=== PATIENT | female | born 1990 | race Caucasian/White ===

== ENCOUNTER 2016-09-02 14:23 | Inpatient (IN) | payer BC, OTHER ==
[~2016-09-02] VITALS: Ht 152.4 cm; Wt 47.6 kg
[~2016-09-02 14:23] MED LIST: CLON0.1T14 PO; DICY20TA28 PO; Gabapentin PO; HYDR-3895 PO; Ibuprofen PO; METH-33 PO; NORG1TAB11 PO; TRAZ-144 PO
[2016-09-03 12:22] LABS: *URINE HCG, QUAL NEGATIVE (NEGATIVE)
[2016-09-03] MEDS ORDERED: LORAZEPAM 1 MG TABLET PO PRN ×2 (12:30)
[2016-09-03] MEDS ORDERED: BUPRENORPHINE HCL 2 MG TAB.SUBL SL PRN (12:30)
[2016-09-03] MEDS ORDERED: diphenhydrAMINE 50 MG CAPSULE PO PRN (12:30)
[2016-09-03] MEDS ORDERED: LORAZEPAM 2 MG/1 ML VIAL IM PRN (12:30)
[2016-09-03] MEDS ORDERED: LOPERAMIDE HCL 2 MG CAPSULE PO PRN ×2 (12:30)
[2016-09-03] MEDS ORDERED: ACETAMINOPHEN 325 MG TABLET PO PRN (12:30)
[2016-09-03] MEDS ORDERED: IBUPROFEN 400 MG TABLET PO PRN (12:30)
[2016-09-03] MEDS ORDERED: MAGNESIUM HYDROXIDE 30 ML LIQUID UDC PO PRN (12:30)
[2016-09-03] MEDS ORDERED: MIRALAX 17 GM POWD.PACK PO PRN (12:30)
[2016-09-03] MEDS ORDERED: METHOCARBAMOL 750 MG TABLET PO PRN (12:30)
[2016-09-03] MEDS ORDERED: ONDANSETRON ODT 4 MG TAB.RAPDIS SL PRN (12:30)
[2016-09-03] MEDS ORDERED: MAG HYDROX/AL HYDROX/SIMETH 30 ML LIQUID UDC PO PRN (12:30)
[2016-09-03 12:34] LABS: *AMPHETAMINE, URINE NEGATIVE (NEGATIVE); *BARBITURATE, URINE NEGATIVE (NEGATIVE); *CANNABINOID, URINE NEGATIVE (NEGATIVE); *COCCAINE, URINE NEGATIVE (NEGATIVE); *OPIATE, URINE POSITIVE (NEGATIVE); *PHENCYCLIDINE SCREEN,URINE NEGATIVE (NEGATIVE)
[2016-09-03 12:49] VITALS: BP 129/79
--- NOTE | 2016-09-03 13:42 | NUR ---
ADMISSION Admitted a 26 year old female, arrived on unit at 1150 presenting in stable condition. Patients body assessment completed, noted with intact skin no bruising, discolorations or breakdown noted. Body search completed by female JUNIOR UNDERWRITER, no contraband found. Patient oriented to unit and to room, educated regarding call light use. Patients vital signs: bp: 129/79 hr: 83 r: 16 o2 sat: 97% room air. Patient is 5 feet tall and weighs 105lbs. Patient reports no drug or food allergies. Patient reports she relapsed 2 weeks ago. reports usin. heroin 1 gram smoked daily for 2 weeks, per patient she has been using heroin since the age of 18, report last used this morning 1 gram at approximately 0600. 2. Klonopin 2 mg Po at bedtime for 2 weeks, per patient she has been using Klonopin since the age of 21, reports last used 09/02/2016 at 2300. Patient brought home medication ( control) medication was reconciled. patient reports past medical history of anxiety and depression. Patient denies any history of seizures. Refused FLU/PNA vaccine risk vs benefits explained with good verbal understanding. Patient reports family substance use history of sister using heroin, but has been sober for 7 months now. Reports [facility] of: [facility]august [facility], [facility] in [place] for 11 days in 2016, [facility] for 5 days at the age of 21 and [facility] for 5 days at the age of 20. Patient presenting with no s/sx of withdrawal. Patient was seen by Dr. Rosenbaum with new admitting orders. Patient calm and cooperative. alert and oriented x4, pupils are equal and reactive to light, 3mm. Patients abdomen is soft and non distended, bowel sounds heard in all quadrants, patients respirations are even and unlabored, lungs clear upon auscultation. psychiatrist notified of new admission. safety measures in place. call light with in reach, will continue to monitor closely.
[2016-09-03 15:13] LABS: ETHANOL < 3 MG/DL (0-0)
[2016-09-03 15:19] LABS: ALANINE AMINOTRANSFERASE 32 U/L (14-59); ALKALINE PHOSPHATASE 57 U/L (50-136); BILIRUBIN,TOTAL 0.4 mg/dL (0.2-1.0); CALCIUM 9.2 mg/dL (8.5-10.1); CARBON DIOXIDE 28 mmol/L (21-32); CHLORIDE 105 mmol/L (98-107); CREATININE 0.7 mg/dL (0.6-1.3); GFR 102 mL/min (>60); GLUCOSE 100 mg/dL (74-106); MAGNESIUM 1.7 mg/dL (1.8-2.4); POTASSIUM 3.9 mmol/L (3.5-5.1); SODIUM SERUM 141 mmol/L (136-145); TOTAL PROTEIN, SERUM 7.9 g/dL (6.4-8.2); UREA NITROGEN, BLOOD 9 mg/dL (7-18)
[2016-09-03 15:30] LABS: HIV-1 p24 ANTIGEN NON REACTIVE (NONREACTIVE); HIV-1/2 ANTIBODY NON REACTIVE (NONREACTIVE)
[2016-09-03 15:53] LABS: ASPARTATE AMINOTRANSFERASE 25 U/L (15-37)
[2016-09-03] MEDS: GABAPENTIN 300 MG CAPSULE PO SCH (16:23)
[2016-09-03 16:58] LABS: EOSINOPHILS # (AUTO) 0.1 K/uL (0.0-0.7); LYMPHOCYTES # (AUTO) 1.8 K/uL (0.8-4.8); MONOCYTES # (AUTO) 0.5 K/uL (0.1-1.30); NEUTROPHILS # (AUTO) 5.7 K/uL (1.8-8.9)
[2016-09-03 16:59] LABS: HEMATOCRIT 41.4 % (33-45); MEAN CORPUSCULAR HEMOGLOBIN 31.7 UUG (26.0-33.0); MEAN CORPUSCULAR HGB CONC 34 g/dL (31.0-36.0); MEAN CORPUSCULAR VOLUME 93.7 FL (82-100); PLATELET COUNT (AUTO) 295 K/UL (150-450); RED BLOOD CELL COUNT(AUTO) 4.41 MIL/UL (4.0-5.2); RED CELL DISTRIBUTION WIDTH 12.6 % (11.5-15.0); WHITE BLOOD COUNT (AUTO) 8.2 K/UL (4.3-11.0)
[2016-09-03 17:00] VITALS: BP 96/63
[2016-09-03 17:00] LABS: BASOPHILS % (AUTO) 0.3 % (0.0-2.0); EOSINOPHILS % (AUTO) 1.8 % (0.0-7.0); LYMPHOCYTES % (AUTO) 22.4 % (20.5-51.5); MONOCYTES % (AUTO) 5.6 % (0.0-11.0); NEUTROPHILS % (AUTO) 69.9 % (43.0-81.0)
--- NOTE | 2016-09-03 18:59 | NUR ---
END OF SHIFT Patient alert and oriented x4, compliant with therapeutic plan of care, vital signs with in normal limits during shift. Patient admitted today, with admitting Dx: opiate dependence. Patient currently with no ongoing taper, but has PRN medications for s/sx of withdrawal as needed, continues under close observation of vital signs and cow scores. 1700 assessment patient presented with: heart rate of 86 with cow score eof: 1. Patient encouraged to attend group therapies/sessions to learn new coping skills to prevent relapse, denies any SI/HI. Patient encouraged increase in PO fluid intake as tolerated. Patients abdomen is soft and non distended, bowel sounds heard in all quadrats. no episodes of N/V/D noted. Safety measures in place. call light with in reach, patient endorsed to warehouse shift supervisor nurse, all pertinent information discussed.
[2016-09-03 20:00] VITALS: BP 109/69
--- NOTE | 2016-09-03 20:00 | NUR ---
START OF SHIFT NOTE PATIENT IS A 26 YEAR OLD FEMALE, ADMITTED ON 09/03/16 FOR OPIATE DEPENDENCE. PATIENT IS FULL CODE, REGULAR DIET AND NO KNOWN ALLERGY. PATIENT REPORTS PMH OF ANXIETY AND DEPRESSION. PATIENT IS ON HEROIN (SMOKED) 1 GRAM X 2 WEEKS AND KLONOPIN 2 MG X 2 WEEKS . PATIENT RELAPSED 2 WEEKS AGO. PATIENT WAS PLACED ON 4 DAY SUBUTEX TAPER TO START TOMORROW. SKIN INTACT. PATIENT DID NOT REQUIRE PRN MEDICATION DURING THE DAY. LAST COWS 1. PATIENT ALERT AND ORIENTED X 4. RESPIRATION EVEN AND UNLABORED. PATIENT C/O ANXIETY, DENIES ANY PAIN. NO N/V. PATIENT STATES SHE STARTING TO SWEAT. REQUESTED A SLEEP AID , PER PATIENT SHE WILL SLEEP IT IN AND WILL ASK IF NEEDED. SAFETY MEASURES IN PLACE. CALL LIGHT IN REACH. WILL CONTINUE TO MONITOR.
[2016-09-03] MEDS ORDERED: MAGNESIUM OXIDE 400 MG TABLET PO ONE (21:00)
[2016-09-03] MEDS: AMITRIPTYLINE HCL 50 MG TABLET PO PRN (21:29)
--- NOTE | 2016-09-03 21:29 | NUR ---
PRN ELAVIL ADMINISTRATION PATIENT REQUESTS FOR SLEEP AID. PRN ELAVIL GIVEN. WILL MONITOR FOR EFFECTIVENESS.
[2016-09-03] MEDS: CLONIDINE HCL 0.1 MG TABLET PO PRN (22:17)
[2016-09-03] MEDS: DICYCLOMINE HCL 20 MG TABLET PO PRN (22:17)
--- NOTE | 2016-09-03 22:17 | NUR ---
PRN BENTYL. CATAPRES AND VISTARIL ADMINISTRATION PATIENT C/O ABDOMINAL CRAMPING, HOT AND COLD SWEATS AND ANXIETY. PRN BENTYL/CATAPRES AND VISTARIL GIVEN. WILL MONITOR FOR EFFECTIVENESS.
[2016-09-03] MEDS: HYDROXYZINE PAMOATE 25 MG CAPSULE PO PRN (22:18)
--- NOTE | 2016-09-03 23:30 | NUR ---
PRN MEDICATIONS RE-ASSESSMENT PATIENT IN BED WITH EYES CLOSED. NO S/S OF DISTRESS. RESPIRATION EVEN AND UNLABORED. SAFETY MEASURES IN PLACE. CALL LIGHT IN REACH. WILL CONTINUE TO MONITOR.
[2016-09-04] VITALS: BP 96/59
[2016-09-04 04:00] VITALS: BP 101/65
--- NOTE | 2016-09-04 06:39 | NUR ---
PRN ZOFRAN /SUBUTEX GIVEN PATIENT NOTED VOMITING C/O NAUSEA. PATIENT TREMULOUS, FLUSHED FACE, RUNNY NOSE, SWEATING AND RESTLESS, COWS 13. VS BP-105/69 P-72 . PRN ZOFRAN/SUBUTEX GIVEN. WILL MONITOR FOR EFFECTIVENESS.
--- NOTE | 2016-09-04 07:09 | NUR ---
PRN SUBUTEX RE-ASSESSMENT PATIENT IN BED,PATIENT STATES SHE'S DOING BETTER NOW, NAUSEA AND EMESIS CEASED. COWS 5 AT THIS TIME. PATIENT LESS ANXIOUS. PATIENT STATE PRN SUBUTEX HELPFUL. WILL CONTINUE TO MONITOR.
--- NOTE | 2016-09-04 07:12 | NUR ---
END OF SHIFT NOTE PATIENT IS A 26 YEAR OLD FEMALE, ADMITTED ON 09/03/16 FOR OPIATE DEPENDENCE. PATIENT IS FULL CODE, REGULAR DIET AND NO KNOWN ALLERGY. PATIENT REPORTS PMH OF ANXIETY AND DEPRESSION. PATIENT IS ON HEROIN (SMOKED) 1 GRAM X 2 WEEKS AND KLONOPIN 2 MG X 2 WEEKS . PATIENT RELAPSED 2 WEEKS AGO. PATIENT WAS PLACED ON 4 DAY SUBUTEX TAPER TO START TOMORROW. PATIENT IS ON 4 DAY SUBUTEX TAPER. SKIN INTACT. PATIENT ALERT AND ORIENTED X 4. RESPIRATION EVEN AND UNLABORED. PATIENT C/O ANXIETY, DENIES ANY PAIN. PATIENT STATES SHE'S STARTING TO SWEAT. REQUESTED A SLEEP AID , PER PATIENT SHE WILL SLEEP AND WILL ASK IF NEEDED. PATIENT WAS GIVEN PRN ELAVIL FOR SLEEP. LATER AT NIGHT, PATIENT C/O ANXIETY, HOT AND COLD SWEATS AND STOMACH CRAMPING. PRN BENTYL , CLONIDINE AND VISTARIL GIVEN, EFFECTIVE. MAGNESIUM LEVEL 1.7-REPLACED WITH MAG OX . PATIENT AT 0630 WAS NAUSEATED, VOMITING, TREMULOUS, RESTLESS , SWEATING , COWS 13. PRN SUBUTEX GIVEN. ENDORSED TO DAY SHIFT NURSE TO FOLLOW UP. PATIENT IN BED , RESTING. SAFETY MEASURES IN PLACE. CALL LIGHT IN REACH. WILL CONTINUE TO MONITOR. SLEPT 6 HOURS. FLUID INTAKE 500 ML. VOIDED X 0 . NO BM. LAST COWS 5..
--- NOTE | 2016-09-04 07:25 | NUR ---
PRN ZOFRAN RE-ASSESSMENT PATIENT REPORTS NAUSEA/ EMESIS CEASED. ZOFRAN HELPFUL AND EFFECTIVE. WILL CONTINUE TO MONITOR
--- NOTE | 2016-09-04 07:28 | NUR ---
Start of shift Patient is a 26 year old female, admitted on 09/03/16 for opiate dependence. Patient is full code, regular diet and no known allergy. Patient reports PMH of anxiety and depression. Patient relapsed 2 weeks ago. Patient is placed on a 4 day Subutex currently on day 1 of her taper. Patient was given PRN Elavil, Bentyl , Clonidine and Vistaril medication effective per overnight houseperson nurse. Pt was given one time order of Mag Ox d/t having low magnesium levels of 1.7 Pt also received a PRN Subutex for COWS score of 13. Pts last COWS was a 5 taken at 0400. Pt slept a total of 6 hours last night. Patient in bed , resting. Safety measures in place. Call light in reach. Will continue to monitor.
[2016-09-04 08:00] VITALS: BP 104/65
[2016-09-04] MEDS ORDERED: TUBERCULIN,PURIF.PROT.DERIV. 5 TU/0.1 ML TEST ID ONE (09:00)
[2016-09-04] MEDS ORDERED: 4 DAY TAPER BUPRENORPHINE -SERENITY PROTOCOL SL PRN (09:00)
[2016-09-04] MEDS: MULTIVITAMINS,THERAPEUTIC TABLET PO SCH (09:25)
[2016-09-04] MEDS: GABAPENTIN 300 MG CAPSULE PO SCH ×3 (09:25→21:29)
[2016-09-04] MEDS: DOCUSATE SODIUM 250 MG CAPSULE PO SCH (09:26)
[2016-09-04] MEDS: BUPRENORPHINE HCL 2 MG TAB.SUBL SL SCH ×3 (09:26→21:30)
[2016-09-04] MEDS: TRI-SPRINTEC PO SCH (09:27)
[2016-09-04] MEDS: CLONIDINE HCL 0.1 MG TABLET PO PRN (09:45)
[2016-09-04] MEDS: DICYCLOMINE HCL 20 MG TABLET PO PRN (09:45)
[2016-09-04] MEDS: HYDROXYZINE PAMOATE 25 MG CAPSULE PO PRN (09:45)
--- NOTE | 2016-09-04 09:45 | NUR ---
PRN MEDICATION Pt c/o Anxiety presented with sweats fatigue and restlessness pt also complained of generalized pain rating it 5/10 and stomach cramps, requested something for relief, non-pharmacological techniques interventions provided x3 and were not effective. PRN clonidine 0.1mg Vistaril 50mg, Bentyl 20mg and Robaxin 750mg administered PO, educated pt about s/e of medication and when to contact nurse. all needs met, all safety measures in place, will continue to monitor.
--- NOTE | 2016-09-04 10:46 | NUR ---
PRN REASSESSMENT Medications effective pt reported a decrease in pain to 3/10, pt stated she felt less anxious and no longer had abdominal cramps, all needs met, all safety measures in place will continue to monitor.
[2016-09-04] MEDS ORDERED: KETOROLAC TROMETHAMINE 30 MG INJ IM PRN (11:15)
[2016-09-04 12:00] VITALS: BP 128/75
[2016-09-04] MEDS ORDERED: BUPRENORPHINE HCL 2 MG TAB.SUBL SL ONE (12:30)
[2016-09-04 13:25] LABS: HCV AB 0.1 s/co ratio (0.0-0.9); HEPATITIS B CORE AB, IgM Negative (Negative); HEPATITIS B SURFACE AG Negative (Negative)
[2016-09-04] MEDS: BACLOFEN 20 MG TABLET PO SCH ×2 (15:24→21:30)
[2016-09-04 16:00] VITALS: BP 141/76
--- NOTE | 2016-09-04 19:23 | NUR ---
End of shift Patient is a 26 year old female, admitted on 09/03/16 for opiate dependence. Patient is full code, regular diet and no known allergy. Patient reports PMH of anxiety and depression. Patient relapsed 2 weeks ago. Patient is placed on a 4 day Subutex currently on day 1 of her taper. Patient was given PRN Bentyl , Clonidine robaxin and Vistaril medication effective. Pt was given one time order of Subutex per MD order . Pts last COWS was a 7 taken at 1600. Pt did not participate in any groups or activities during the day. Pt stated that the medications are working well at controlling the withdrawal symptoms, evidenced by low assessment scores during the day ranging from 9-7. Pt ate all of her meals. Pt remains compliant with the treatment plan. Pts vital signs within normal limits, A/Ox4, denies chest pain. Respirations even unlabored, lungs clear upon auscultation abdomen soft and non- distended. Pt denies nausea, vomiting and diarrhea. Pt total fluid intake was 855ml with 3 voids and 1 stool. Safety measures in place, call light within reach. All pertinent information discussed with fast food shift supervisor, endorsement given to fast food shift supervisor nurse.
[2016-09-04 20:00] VITALS: BP 104/60
--- NOTE | 2016-09-04 20:00 | NUR ---
START OF SHIFT NOTE PATIENT IS A 26 YEAR OLD FEMALE, ADMITTED ON 09/03/16 FOR OPIATE/BENZO DEPENDENCE. PATIENT IS FULL CODE, REGULAR DIET AND NO KNOWN ALLERGY . PATIENT REPORTS PMH OF ANXIETY AND DEPRESSION . PATIENT IS ON HEROIN (SMOKED ) 1 GRAM X 2 WEEKS AND KLONOPIN 2 MG X 2 WEEKS .PATIENT IS ON FIRST DAY OF HER 4 DAY SUBUTEX TAPER. PATENT IN ON FALL PRECAUTION. SKIN INTACT. PATIENT WAS GIVEN VISTARIL, ROBAXIN, BENTYL AND EXTRA SUBUTEX DURING THE DAY. LAST COWS 7. CHEST X-RAY WAS DONE DUE TO TB TEST REFUSAL. PATIENT ALERT AND ORIENTED. PATIENT STATES SHE'S NOT FEELING GOOD. PATIENT C/O ANXIETY, HOT AND COLD SWEATS, NOTED FLUSHED, ABDOMINAL CRAMP, NO N/V, STUFFY NOSE. SAFETY MEASURES IN PLACE. CALL LIGHT IN REACH. WILL CONTINUE TO MONITOR.
[2016-09-04] MEDS ORDERED: LORAZEPAM 1 MG TABLET PO SCH (21:00)
[2016-09-04] MEDS: AMITRIPTYLINE HCL 50 MG TABLET PO PRN (22:22)
--- NOTE | 2016-09-04 22:22 | NUR ---
PRN ELAVIL ADMINISTRATION PATIENT REQUESTS FOR SLEEP AID. PRN ELAVIL GIVEN. WILL MONITOR FOR EFFECTIVENESS.
[2016-09-04] MEDS ORDERED: AMITRIPTYLINE HCL 50 MG TABLET ONE (22:27)
--- NOTE | 2016-09-04 23:30 | NUR ---
PRN ELAVIL RE-ASSESSMENT PATIENT IN BED WITH EYES CLOSED. RESPIRATION EVEN AND UNLABORED. NO S/S OF DISTRESS. SAFETY MEASURES IN PLACE. CALL LIGHT IN REACH. WILL CONTINUE TO MONITOR
[2016-09-05 04:00] VITALS: BP 95/54
--- NOTE | 2016-09-05 07:06 | NUR ---
Start of Shift Endorsement received from nightshift nurse. Pt is a 26 y/o female admitted for Heroin and klonopin dependence. PT has been placed on a 4 day Subutex taper. Taper had been initiated on 09/04/16. Pt is tolerating the taper weell AEB COWS 1, CIWA 1. Pt reports sleeping 6 hours. Pt is a alert and oriented x4. VS WNL, Full Code. Remains compliant with medication and diet regimen. All needs have been met, All safety measures in place per hospital policy. Bed in lowest position, side rails up x2, call-light within reach. Will continue to monitor
--- NOTE | 2016-09-05 07:17 | NUR ---
END OF SHIFT NOTE PATIENT IS A 26 YEAR OLD FEMALE, ADMITTED ON 09/03/16 FOR OPIATE/BENZO DEPENDENCE. PATIENT IS FULL CODE, REGULAR DIET AND NO KNOWN ALLERGY . PATIENT REPORTS PMH OF ANXIETY AND DEPRESSION . PATIENT IS ON HEROIN (SMOKED ) 1 GRAM X 2 WEEKS AND KLONOPIN 2 MG X 2 WEEKS .PATIENT IS ON FIRST DAY OF HER 4 DAY SUBUTEX TAPER. PATENT IN ON FALL PRECAUTION. SKIN INTACT. CHEST X-RAY WAS DONE DUE TO TB TEST REFUSAL. PATIENT ALERT AND ORIENTED. PATIENT STATES SHE'S NOT FEELING GOOD. PATIENT C/O ANXIETY, HOT AND COLD SWEATS, NOTED FLUSHED, ABDOMINAL CRAMP, NO N/V, STUFFY NOSE. PATIENT WAS GIVEN ELAVIL FOR SLEEP. PATIENT COMPLIANT WITH MEDICATION AND TREATMENT PLAN. PATIENT STATES MEDICATION IS EFFECTIVE IN CONTROLLING HER WITHDRAWAL SYMPTOMS IN EVIDENCE OF HIS COWS AND CIWA SCORE FROM COWS 6-1 AND CIWA 4-1. SAFETY MEASURES IN PLACE. CALL LIGHT IN REACH. WILL CONTINUE TO MONITOR. SLEPT 6 HOURS. FLUID INTAKE 795 ML. VOIDED X 2 . BM X 1 .
[2016-09-05 08:00] VITALS: BP 105/78
[2016-09-05] MEDS ORDERED: BUPRENORPHINE HCL 2 MG TAB.SUBL SL SCH (09:00)
[2016-09-05] MEDS: DOCUSATE SODIUM 250 MG CAPSULE PO SCH (09:21)
[2016-09-05] MEDS: LORAZEPAM 1 MG TABLET PO SCH ×3 (09:21→20:57)
[2016-09-05] MEDS: GABAPENTIN 300 MG CAPSULE PO SCH ×3 (09:21→20:57)
[2016-09-05] MEDS: BACLOFEN 20 MG TABLET PO SCH ×3 (09:21→20:56)
[2016-09-05] MEDS: MULTIVITAMINS,THERAPEUTIC TABLET PO SCH (09:22)
[2016-09-05] MEDS: TRI-SPRINTEC PO SCH (09:27)
[2016-09-05 12:00] VITALS: BP 123/97
[2016-09-05] MEDS: BUPRENORPHINE HCL 2 MG TAB.SUBL SL SCH ×2 (14:51→20:57)
[2016-09-05] MEDS: CLONIDINE HCL 0.1 MG TABLET PO SCH ×2 (14:51→20:56)
[2016-09-05 16:00] VITALS: BP 108/63
--- NOTE | 2016-09-05 18:50 | NUR ---
End of shift Endorsement given to nightshift nurse. Pt is a 26 y/o female admitted for Heroin and klonopin dependence. PT has been placed on a 4 day Subutex taper. Taper had been initiated on 09/04/16. Pt is tolerating the taper weell AEB COWS 1, CIWA 2. Pt participated in groups and activities. Intake: 1950ml, Void x6, BM x0. Pt is a alert and oriented x4. VS WNL, Full Code. Remains compliant with medication and diet regimen. All needs have been met, All safety measures in place per hospital policy. Bed in lowest position, side rails up x2, call-light within reach. Will continue to monitor
--- NOTE | 2016-09-05 19:00 | NUR ---
START OF SHIFT NOTE Patient is a 26 years old female admitted to [facility] on 09/03/2016 for Benzo/Opioid withdrawal placed on 4 day Subutex started 09/04/2016 and 3 day Ativan taper started on 09/04/2016. Patient reported substance use history: Clonazepam (Klonopin ) PO 2 mg daily for 6 months. Last dosage of 2 mg was on 09/03/2016; and heroin 1 gram via smoke inhalation daily for 2 years. Last time pt's smoke 1 gram on 09/02/2016. Pt's reported NKA; Regular Diet . Patient Full Code; Fall Precautions. Patient denied History of Seizures. PMH: Anxiety; Depression; Insomnia. Patient denied Past Surgical History. Patient has been treatment in the past [facility]: 08/14/2016 - 08/20/2016; [facility] for11 days in 02/2016; [facility] for 5 days in 2011. Upon assessment at 19:00 patient's alert and oriented x4; Speech is clear. CIWA 6; COWS 5. Patient 's anxiety, restlessness, bones and muscles aches, pain 5/10. VS: T: 97'9; HR: 101; RR 18; O2 Sat: 99%. . Patient compliant with treatment plan. Breathing is unlabored and even. Lungs Sounds are clear bilaterally. Patient denies SOB and chest pain. BS is active in all x 4 quadrants. Last BM's on 09/05/2016 at 15:00. Urine is clear, yellow. Patient denies pain during urination. Safety measures on the place: Call Light within reach; Bed in the lowest position and locked; Bed rails upx2. Will continue to monitor.
[2016-09-05 20:00] VITALS: BP 120/88
[2016-09-05] MEDS: AMITRIPTYLINE HCL 50 MG TABLET PO PRN (20:55)
--- NOTE | 2016-09-05 20:55 | NUR ---
PRN Amitriptyline (Elavil) PO Administration Patient c/o insomnia and asked sleep aid. Patient 's assessed. PRN Elavil PO 's discussed with patient. Patient's educated for mechanism of action, adverse effects and common side effects of Amitriptyline (Elavil). Patient's return her knowledge back by verbalizing understanding. PRN Amitriptyline(Elavil) PO was administrated as ordered. Patient tolerated well. Safety measures on the place: Call Light within reach; Bed in the lowest position and locked; Bed rails upx2. Will continue to monitor.
--- NOTE | 2016-09-05 21:55 | NUR ---
REASSESSMENT Patient's sleeping. RR:14. Breathing is unlabored and even. PRN Amitriptyline (Elavil) PO was effective.Safety measures on the place: Call Light within reach; Bed in the lowest position and locked; Bed rails upx2. Will continue to monitor.
--- NOTE | 2016-09-06 | NUR ---
VS REFUSED AND CIWA/COWS DEFERRED Patient refused to be woken up for 00:00 VS. CIWA/COWS deferred d/t patient sleeping to assess while patient is awake. Safety measures on place by hospital policy: Call light within reach; Bed in lowest position and locked; side rails up x2. Will continue to monitor.
--- NOTE | 2016-09-06 04:00 | NUR ---
VS REFUSED AND CIWA/COWS DEFERRED Patient refused to be woken up for 04:00 VS. CIWA/COWS deferred d/t patient sleeping to assess while patient is awake. Safety measures on place by hospital policy: Call light within reach; Bed in lowest position and locked; side rails up x2. Will continue to monitor.
[2016-09-06 05:00] VITALS: BP 116/77
--- NOTE | 2016-09-06 07:07 | NUR ---
END OF SHIFT NOTE Patient is a 26 years old female admitted to [facility] on 09/03/2016 for Benzo/Opioid withdrawal placed on 4 day Subutex started 09/04/2016 and 3 day Ativan taper started on 09/04/2016. Patient reported substance use history: Clonazepam (Klonopin ) PO 2 mg daily for 6 months. Last dosage of 2 mg was on 09/03/2016; and heroin 1 gram via smoke inhalation daily for 2 years. Last time pt's smoke 1 gram on 09/02/2016. NKA; Regular Diet; Full Code; Fall Precautions. CIWA decreased from 6 to 4; COWS decreased from 5 to 3. During shift patient presented with anxiety, restlessness, bones and muscles aches, pain 3/10. VS: T: 98.7; HR:78; RR: 16; O2Sat: 97%; BP: 116/77; Pain level: 0/10. PRN Elavil PO was effective. Patient slept 7,15 hours; [id number] ml; Voided x3. Patient compliant with medications regimen. Safety measures on the place: Call Light within reach; Bed in the lowest position and locked; Bed rails upx2. Patient endorsed to incoming day shift nurse in stable condition. Report given.
--- NOTE | 2016-09-06 07:08 | NUR ---
Start of Shift Endorsement received from nightshift nurse. Pt is a 26 y/o female admitted for Heroin and klonopin dependence. PT has been placed on a 4 day Subutex taper. Taper had been initiated on 09/04/16. Pt is tolerating the taper well, Pt is mildly withdrawing AEB COWS 3, CIWA 3 at midnight. Pt reports sleeping 7 hours. Pt did not receive any PRN medications. Pt is a alert and oriented x4. VS WNL, Full Code. Remains compliant with medication and diet regimen. All needs have been met, All safety measures in place per hospital policy. Bed in lowest position, side rails up x2, call-light within reach. Will continue to monitor
[2016-09-06 08:00] VITALS: BP 108/74
[2016-09-06] MEDS: LORAZEPAM 1 MG TABLET PO SCH ×2 (08:48→21:09)
[2016-09-06] MEDS: BACLOFEN 20 MG TABLET PO SCH ×3 (08:48→21:11)
[2016-09-06] MEDS: MULTIVITAMINS,THERAPEUTIC TABLET PO SCH (08:48)
[2016-09-06] MEDS: BUPRENORPHINE HCL 2 MG TAB.SUBL SL SCH ×3 (08:48→21:09)
[2016-09-06] MEDS: CLONIDINE HCL 0.1 MG TABLET PO SCH ×3 (08:48→21:09)
[2016-09-06] MEDS: DOCUSATE SODIUM 250 MG CAPSULE PO SCH (08:48)
[2016-09-06] MEDS: GABAPENTIN 300 MG CAPSULE PO SCH ×3 (08:48→21:09)
[2016-09-06] MEDS: TRI-SPRINTEC PO SCH (08:49)
[2016-09-06 12:00] VITALS: BP 112/63
[2016-09-06 16:00] VITALS: BP 113/83
[2016-09-06] MEDS: DICYCLOMINE HCL 20 MG TABLET PO PRN (18:50)
--- NOTE | 2016-09-06 18:50 | NUR ---
PRN Bentyl Administered PRN Bentyl for stomach cramps. Will re-assess.
--- NOTE | 2016-09-06 19:02 | NUR ---
START OF SHIFT NOTE Patient is a 26 years old female admitted to [facility] on 09/03/2016 for Benzo/Opioid withdrawal placed on 4 day Subutex started 09/04/2016 and 3 day Ativan taper initiated on 09/04/2016. Today is day 3. Patient tolerating the taper well. NKA; Regular Diet . Patient Full Code; Fall Precautions. Patient denied History of Seizures. Substance use history: Clonazepam (Klonopin ) PO 2 mg daily for 6 months. Last dosage of 2 mg was on 09/03/2016; heroin 1 gram via smoke inhalation daily for 2 years. PMH: Anxiety; Depression; Insomnia. History of Treatment: [facility]: 08/14/2016 - 08/20/2016; [facility] for11 days in 02/2016; [facility] for 5 days in 2011. Upon assessment at 1900: Patient's alert and oriented x4; Speech is clear. CIWA 3; COWS 5: patient 's c/o increased anxiety, restlessness, bones and muscles aches. VS: T: 97'9; BP: 131/92; HR: 76; RR 18; O2 Sat: 100%; Pain level 5 by 0-10 pain scale. Patient remains compliant with medications and diet regime. Breathing is unlabored and even.Lungs Sounds are clear bilaterally. Patient denies SOB and chest pain. BS is active in all x 4 quadrants. Last BM's on 09/05/2016 at 15:00. Urine is clear, yellow. Patient denies pain during urination. Safety measures on the place: Call Light within reach; Bed in the lowest position and locked; Bed rails upx2. Will continue to monitor.
--- NOTE | 2016-09-06 19:02 | NUR ---
End of shift Endorsement given to nightshift nurse. Pt is a 26 y/o female admitted for Heroin and klonopin dependence. PT has been placed on a 4 day Subutex taper. Taper had been initiated on 09/04/16. Pt is tolerating the taper weell AEB COWS 2, CIWA 1. Pt participated in groups and activities. Intake: 2096ml, Void x4, BM x2. PRN Bentyl for stomach cramping. Educated pt on guided imagery to help relieve mild to moderate anxiety. Pt is a alert and oriented x4. VS WNL, Full Code. Remains compliant with medication and diet regimen. All needs have been met, All safety measures in place per hospital policy. Bed in lowest position, side rails up x2, call-light within reach. Will continue to monitor
[2016-09-06] MEDS: AMITRIPTYLINE HCL 50 MG TABLET PO PRN (21:09)
--- NOTE | 2016-09-06 21:09 | NUR ---
PRN Amitriptyline (Elavil) PO Administration Patient c/o insomnia and asked sleep aid. Patient 's assessed. PRN Elavil PO 's discussed with patient. Patient's educated for mechanism of action, adverse effects and common side effects of Amitriptyline (Elavil). Patient's return her knowledge back by verbalizing understanding. PRN Amitriptyline (Elavil) PO was administrated as ordered. Patient tolerated well. Safety measures on the place: Call Light within reach; Bed in the lowest position and locked; Bed rails upx2. Will continue to monitor.
[2016-09-06 21:48] VITALS: BP 131/92
--- NOTE | 2016-09-06 22:09 | NUR ---
PRN ELAVIL REASSESSMENT PATIENT IN BED WITH EYES CLOSED. RR:14. RESPIRATION EVEN AND UNLABORED. SAFETY MEASURES IN PLACE. CALL LIGHT IN REACH. BED IN THE LOWEST POSITION AND LOCKED. BED RAILS UP X2. WILL CONTINUE TO MONITOR.
--- NOTE | 2016-09-07 04:00 | NUR ---
VS REFUSED AND CIWA/COWS DEFERRED Patient refused to be woken up for 00:00 VS. CIWA/COWS deferred d/t patient sleeping to assess while patient is awake. Safety measures on place by hospital policy: Call light within reach; Bed in lowest position and locked; side rails up x2. Will continue to monitor. Addendum: 09/07/16 at 0442 by CRISTÓBAL GOODRICH RN Patient refused to be woken for 0 VS.
--- NOTE | 2016-09-07 07:22 | NUR ---
END OF SHIFT NOTE Patient endorsed to day shift nurse in stable condition. SBAR report given. Patient is a 26 years old female admitted to [facility] on 09/03/2016 for Benzo/Opioid withdrawal placed on 4 day Subutex started 09/04/2016 and 3 day Ativan taper initiated on 09/04/2016. Today is day 3. Patient tolerating the taper well. NKA; Regular Diet . Patient Full Code; Fall Precautions. Patient denied History of Seizures. Substance use history: Clonazepam (Klonopin ) PO 2 mg daily for 6 months. Last dosage of 2 mg was on 09/03/2016; heroin 1 gram via smoke inhalation daily for 2 years. PMH: Anxiety; Depression; Insomnia. History of Treatment: [facility]: 08/14/2016 - 08/20/2016; [facility] for11 days in 02/2016; [facility] for 5 days in 2011. CIWA 3; COWS 5: During shift, patient presented with anxiety, agitation, nervousness, depression, restlessness, bones and muscle aches. VSWNL. PRN Amitriptyline (Elavil) PO's administrated for insomnia and was effective. Patient slept 6,30 hours; Intake: 500 ml; Voided x2. Patient compliant with medications regimen. Safety measures on place by hospital policy: Call light within reach; Bed in lowest position and locked; side rails up x2.
--- NOTE | 2016-09-07 07:30 | NUR ---
START OF SHIFT NOTE Received report from night nurse, 26 year old female, admitted for opiate dependence. Full code, regular diet, NKA. Patient reported PMH of anxiety and depression. Patient relapsed 2 weeks ago. Pt is cont with 4 day Subutex taper. Patient was given PRN Elavil effective per database developer nurse. pt slept for 6 hours, last CIWA-3, COWS-5. Currently pt received in her room watching T.V, pt reported feeling anxious, stuffy nose, mild body aches. Educate the pt plan of the day and medication regimen with good verbal understanding. Safety measures in place, call light within reach. Will cont to monitor.
[2016-09-07 08:00] VITALS: BP 117/78
[2016-09-07] MEDS: DOCUSATE SODIUM 250 MG CAPSULE PO SCH (08:05)
[2016-09-07] MEDS: GABAPENTIN 300 MG CAPSULE PO SCH ×3 (08:05→20:38)
[2016-09-07] MEDS: MULTIVITAMINS,THERAPEUTIC TABLET PO SCH (08:06)
[2016-09-07] MEDS: CLONIDINE HCL 0.1 MG TABLET PO SCH ×3 (08:06→20:38)
[2016-09-07] MEDS: BACLOFEN 20 MG TABLET PO SCH ×3 (08:06→20:38)
[2016-09-07] MEDS: TRI-SPRINTEC PO SCH (08:22)
[2016-09-07] MEDS ORDERED: BUPRENORPHINE HCL 2 MG TAB.SUBL SL SCH (09:00)
[2016-09-07 12:00] VITALS: BP 126/77
[2016-09-07 16:00] VITALS: BP 118/70
--- NOTE | 2016-09-07 19:23 | NUR ---
END OF SHIFT NOTE Gave report to night nurse, 26 year old female admitted for Heroin/BENZO dependence. NKA/Full code, Regular diet. Pt completed her 4 days Subutex taper tolerated well. No PRN Medications were administered. Pt participated in groups and activities. Pt's total intake 2630ml, Void x4, with x1 BM. Pt is a alert and oriented x4. VS WNL. Remains compliant with medication and diet regimen. Pt scheduled for discharge in AM. All needs have been met, Safety measures in place, call light within reach. Pt endorsed to night nurse in stable condition.
[2016-09-07 20:00] VITALS: BP 120/82
--- NOTE | 2016-09-07 20:00 | NUR ---
START OF SHIFT NOTE PATIENT IS A 26 YEAR OLD FEMALE, ADMITTED ON 09/03/16 FOR OPIATE DEPENDENCE. PATIENT IS FULL CODE, REGULAR DIET AND NO KNOWN ALLERGY.PATIENT WAS PLACED ON 4 DAY SUBUTEX AND 3 DAY ATIVAN TAPER, TOLERATED AND COMPLETED. PATIENT IS TO BE DISCHARGE TOMORROW. SKIN INTACT. PATIENT DID NOT REQUIRE ANY PRN MEDICATION DURING THE DAY. LAST COWS 2 AND CIWA 0. PATIENT ALERT AND ORIENTED X 4. RESPIRATION EVEN AND UNLABORED. SHE VERBALIZES THAT SHE'S BETTER THIS MORNING BUT SHE'S TIRED AT THIS TIME. NO N/V. DENIES ANY PAIN. PATIENT STATES SHE WILL NEED SLEEP MEDICATION . WILL CONTINUE TO MONITOR.
[2016-09-07] MEDS: AMITRIPTYLINE HCL 50 MG TABLET PO PRN (20:42)
--- NOTE | 2016-09-07 20:42 | NUR ---
PRN ELAVIL ADMINISTRATION PATIENT REQUESTS FOR SLEEP AID. PRN ELAVIL GIVEN. WILL MONITOR FOR EFFECTIVENESS.
[2016-09-07] MEDS ORDERED: BACLOFEN 20 MG TABLET PO PRN (22:00)
[2016-09-08] VITALS: BP 115/68
--- NOTE | 2016-09-08 04:00 | NUR ---
COWS/VS PATIENT REFUSED VS. COWS UNABLE TO COMPLETE. RESPIRATION EVEN AND UNLABORED. RR 14. NO S/S OF DISTRESS. SAFETY MEASURES IN PLACE. CALL LIGHT IN REACH. WILL CONTINUE TO MONITOR. Addendum: 09/08/16 at 0731 by NADER KIRBY LVN [place] UNABLE TO COMPLETE.
--- NOTE | 2016-09-08 07:24 | NUR ---
Start of shift note SBAR report rcv'd. Pt was admitted for opiate and benzo dependence. Pt has a PMH of anxiety, depression and insomnia. Pt has completed a subutex and ativan taper without any ASE. Pt states that she feels ready for discharge. Pt reminded that she needs to provide a UDS. All other needs addressed at this time. Will continue to monitor pt.
--- NOTE | 2016-09-08 07:28 | NUR ---
END OF SHIFT NOTE PATIENT IS A 26 YEAR OLD FEMALE, ADMITTED ON 09/03/16 FOR OPIATE DEPENDENCE. PATIENT IS FULL CODE, REGULAR DIET AND NO KNOWN ALLERGY.PATIENT WAS PLACED ON 4 DAY SUBUTEX AND 3 DAY ATIVAN TAPER, TOLERATED AND COMPLETED. PATIENT IS TO BE DISCHARGE TODAY. SKIN INTACT.PATIENT ALERT AND ORIENTED X 4. RESPIRATION EVEN AND UNLABORED. PATIENT STATES SHE FEELS TIRED, SHE VERBALIZES THAT SHE'S BETTER THIS MORNING. NO N/V. DENIES ANY PAIN. PATIENT WAS GIVEN PRN ELAVIL FOR SLEEP. PATIENT COMPLIANT WITH MEDICATION AND TREATMENT PLAN. SAFETY MEASURES IN PLACE. CALL LIGHT IN REACH. WILL CONTINUE TO MONITOR. SLEPT 7 HOURS. FLUID INTAKE 500 ML. VOIDED X 2 . NO BM. LAST COWS 0 AND CIWA 0.
[2016-09-08 08:00] VITALS: BP 114/78
[2016-09-08 08:33] LABS: *AMPHETAMINE, URINE NEGATIVE (NEGATIVE); *BARBITURATE, URINE NEGATIVE (NEGATIVE); *CANNABINOID, URINE NEGATIVE (NEGATIVE); *COCCAINE, URINE NEGATIVE (NEGATIVE); *OPIATE, URINE POSITIVE (NEGATIVE); *PHENCYCLIDINE SCREEN,URINE NEGATIVE (NEGATIVE)
[2016-09-08] MEDS ORDERED: HYDR-3895 PO (08:44)
[2016-09-08] MEDS ORDERED: Ibuprofen PO (08:44)
[2016-09-08] MEDS ORDERED: CLON0.1T14 PO (08:44)
[2016-09-08] MEDS ORDERED: DICY20TA28 PO (08:44)
[2016-09-08] MEDS ORDERED: Baclofen PO (08:44)
[2016-09-08] MEDS ORDERED: Gabapentin PO (08:44)
[2016-09-08] MEDS ORDERED: Docusate Sodium PO (08:44)
[2016-09-08] MEDS ORDERED: CLONIDINE HCL 0.1 MG TABLET PO SCH (09:00)
[2016-09-08] MEDS: MULTIVITAMINS,THERAPEUTIC TABLET PO SCH (09:09)
[2016-09-08] MEDS: GABAPENTIN 300 MG CAPSULE PO SCH (09:09)
[2016-09-08] MEDS: DOCUSATE SODIUM 250 MG CAPSULE PO SCH (09:09)
[2016-09-08 09:10] VITALS: BP 114/78
[2016-09-08] MEDS: TRI-SPRINTEC PO SCH (09:10)
--- NOTE | 2016-09-08 10:05 | NUR ---
Discharge note Pt was admitted for opiate and benzo dependence. Pt had a COWS of 1 and CIWA of . Pt VS are WNL. LBM 09/07/16. Pt denies any SI/HI. Pt states that she feels ready for discharge, verbalized her understanding of the discharge instructions. Pt prescriptions, medications, discharge instructions, and valuables secured in a duffle bag and given to INTELLIGENCE SENIOR SERGEANT. Pt ID band removed, pt ambulated off of unit with INTELLIGENCE SENIOR SERGEANT, left facility via [facility] for [facility].
== END 2016-09-08 10:05 | disposition other institution (70) | DRG 895 ==
LOC: SRC 09-03 10:49
PROVIDERS: ADMIT Internal Medicine; ATTEND Internal Medicine
PROC: HZ31ZZZ Individual Counseling for Substance Abuse Treatment, Behavioral (ICD-10-PCS; principal; 2016-09-03)
PROC: HZ2ZZZZ Detoxification Services for Substance Abuse Treatment (ICD-10-PCS; principal; 2016-09-03)
PROC: HZ41ZZZ Group Counseling for Substance Abuse Treatment, Behavioral (ICD-10-PCS; 2016-09-05)
DX: F11.23 Opioid dependence with withdrawal (principal); G47.00 Insomnia, unspecified; F41.9 Anxiety disorder, unspecified; F17.210 Nicotine dependence, cigarettes, uncomplicated; E83.42 Hypomagnesemia; F13.230 Sedative, hypnotic or anxiolytic dependence with withdrawal, uncomplicated; F32.9 Major depressive disorder, single episode, unspecified
CPT/HCPCS: 36415; 70030-TC; 71010; 80307; 83735; 84703; 85025; 86592; 86705; 86803; 87340; 87806; 93005; A4663; G6040-TC; Q0162